=== PATIENT | male | born 1980 | race Hispanic/Latino ===

== ENCOUNTER 2023-07-18 04:20 | Inpatient (IN) | payer OTHER ==
[2023-07-18] VITALS (59 sets, daily range): BP systolic 86–146; BP diastolic 40–99; PULSE 81–99; RESP 12–30; O2SAT 94–96
[~2023-07-18] VITALS: Ht 188 cm; Wt 120.2 kg
[2023-07-18 04:36] LABS: BASOPHILS # (AUTO) 0.04 K/uL (0.00-0.20); BASOPHILS % (AUTO) 0.3 % (0.0-5.0); EOSINOPHILS # (AUTO) 0.01 K/uL (0.00-0.70); EOSINOPHILS % (AUTO) 0.1 % (0.0-8.0); HEMATOCRIT 47.3 % (42-54); IMMATURE GRANULOCYTE ABSOLUTE 0.06 K/uL (0-1); LYMPHOCYTES # (AUTO) 2.4 K/uL (1.0-4.8); LYMPHOCYTES % (AUTO) 18.7 % (21.0-51.0); MEAN CORPUSCULAR HEMOGLOBIN 29.1 pg (27.0-33.0); MEAN CORPUSCULAR HGB CONC 32.8 g/dL (32.0-36.0); MEAN CORPUSCULAR VOLUME 88.7 fL (79-99); MONOCYTES # (AUTO) 0.9 K/uL (0.1-1.0); MONOCYTES % (AUTO) 7.4 % (3.0-13.0); NEUTROPHILS # (AUTO) 9.2 K/uL (1.8-7.7); PLATELET COUNT (AUTO) 277 K/uL (130-400); RED BLOOD CELL COUNT(AUTO) 5.33 MIL/uL (4.50-6.20); RED CELL DISTRIBUTION WIDTH 13.2 % (11.0-15.5); WHITE BLOOD COUNT (AUTO) 12.6 K/uL (4.8-10.8)
[2023-07-18 04:54] LABS: CREATININE 1.5 mg/dL (0.5-1.5); POTASSIUM 4.4 mmol/L (3.5-5.1)
[2023-07-18 04:59] LABS: ALBUMIN 4.1 g/dL (3.5-5.0); BILIRUBIN,TOTAL 0.5 mg/dL (0.2-1.0); TOTAL PROTEIN, SERUM 7.6 g/dL (6.0-8.3)
[2023-07-18] MEDS ORDERED: CLOPIDOGREL 300MG TAB PO ONE (05:00)
[2023-07-18] MEDS ORDERED: ASPIRIN 325MG TAB PO ONE (05:00)
[2023-07-18] MEDS ORDERED: NITROGLYCERIN 1GM OINT 1 INCH/1GM TD ONE (05:00)
[2023-07-18] MEDS ORDERED: ENOXAPARIN SODIUM 80 MG/0.8 ML SQ ONE (05:00)
[2023-07-18] MEDS ORDERED: NITROGLYCERIN 50MG/D5W 250ML 1 BOT ONE (05:04)
[2023-07-18 05:06] LABS: INR 0.95 (0.85-1.15); PROTHROMBIN TIME 11.1 SEC (9.6-11.6)
[2023-07-18 05:08] LABS: PARTIAL THROMBOPLASTIN TIME 27.6 SEC (26.3-35.5)
[2023-07-18 05:20] LABS: MAGNESIUM 1.7 mg/dL (1.80-2.40); THYROID STIMULATING HORMONE 10.6 uIU/mL (0.36-3.74)
[2023-07-18] MEDS: 0.9%NACL 1000ML 1,000 ML IV SCH ×2 (05:29→21:30)
[2023-07-18] MEDS ORDERED: INSULIN HUMULIN R 100 UNIT/ML 3ML IV ONE (05:30)
[2023-07-18] MEDS ORDERED: METOPROLOL TARTRATE 1 MG/ML 5ML VIAL IV ONE (05:30)
[2023-07-18] MEDS ORDERED: LORAZEPAM 2 MG/ML 1 ML VIAL IVP ONE (05:30)
[2023-07-18] MEDS: NITROGLYCERIN 50MG/D5W 250ML 250 BOT IV SCH ×3 (05:31→19:57)
[2023-07-18] MEDS ORDERED: GLUCAGON 1MG KIT 1 MG ML IM PRN (08:00)
[2023-07-18] MEDS ORDERED: POTASSIUM CHLORIDE 10% ELIXIR 20 MEQ/15 ML UDCUP PO PRN (08:00)
[2023-07-18] MEDS ORDERED: DIPHENHYDRAMINE HCL 25 MG CAPSULE PO PRN (08:00)
[2023-07-18] MEDS ORDERED: DEXTROSE 50%-WATER 50 ML DISP.SYRIN IV PRN (08:00)
[2023-07-18] MEDS ORDERED: POTASSIUM CHLORIDE 20MEQ/100ML 100 ML IV PRN (08:00)
[2023-07-18] MEDS ORDERED: MAG/ALUM/SIMETH 30 ML UDCUP PO PRN (08:00)
[2023-07-18] MEDS ORDERED: ONDANSETRON 4MG INJ IV PRN (08:00)
[2023-07-18] MEDS ORDERED: LACTULOSE 20 GM/30 ML UDCUP PO PRN (08:00)
[2023-07-18] MEDS ORDERED: NITROGLYCERIN 0.4 MG SL TAB SL PRN (08:00)
[2023-07-18] MEDS ORDERED: ACETAMINOPHEN 325 MG TAB PO PRN ×2 (08:00)
[2023-07-18] MEDS ORDERED: GUAIFENESIN-DM 200/20 MG 10 ML PO PRN (08:00)
[2023-07-18] MEDS ORDERED: DiphenhydrAMINE HCL 50 MG/ML VIAL IV PRN (08:00)
[2023-07-18] MEDS ORDERED: HEPARIN 5,000 UNIT VIAL SQ PRN (08:30)
[2023-07-18] MEDS: ASPIRIN 81 MG EC TAB PO SCH (09:00)
[2023-07-18] MEDS: FAMOTIDINE 20MG VIAL IV SCH ×2 (09:00→21:00)
[2023-07-18] MEDS: CLOPIDOGREL 75MG TAB PO SCH (09:00)
[2023-07-18] MEDS: HEPARIN 25,000 UNITS/250ML D5W 250 ML IV SCH ×3 (09:11→20:30)
[2023-07-18 09:22] LABS: HEMOGLOBIN A1C 7.6 % (4.0-6.0)
[2023-07-18] MEDS: FAMOTIDINE 20MG TAB PO SCH ×2 (09:24→20:28)
[2023-07-18] MEDS ORDERED: AZIL80TA PO (09:53)
[2023-07-18] MEDS ORDERED: GLIP5TAB11 PO (09:53)
[2023-07-18] MEDS ORDERED: LEVO150C4 PO (09:53)
[2023-07-18] MEDS ORDERED: LISI20TA24 PO (09:53)
[2023-07-18] MEDS ORDERED: GABA300S3 PO (09:53)
[2023-07-18] MEDS ORDERED: DICL1TAB5 PO (09:53)
[2023-07-18] MEDS ORDERED: SITA1TAB6 PO (09:53)
[2023-07-18] MEDS ORDERED: INSU100V12 SQ (09:53)
[2023-07-18] MEDS ORDERED: DEXL30CA3 PO (09:53)
[2023-07-18] MEDS ORDERED: SERT-439 PO (09:53)
[2023-07-18] MEDS ORDERED: ARIP10TA54 PO (09:53)
[2023-07-18] MEDS: MAGNESIUM 2GM PREMIX 50ML 50 ML IV PRN (11:20)
[2023-07-18] MEDS: INSULIN HUMULIN R 100 UNIT/ML 3ML SQ SCH ×3 (11:36→20:28)
[2023-07-18] MEDS: HYDROCODONE/ACETAMINOPHEN 5/325 MG TAB PO PRN ×2 (12:11→20:35)
[2023-07-18] MEDS: HYDROMORPHONE 1 MG INJ IV PRN (14:37)
[2023-07-18 15:36] LABS: INR 0.99 (0.85-1.15); PROTHROMBIN TIME 11.5 SEC (9.6-11.6)
[2023-07-18 16:30] LABS: PARTIAL THROMBOPLASTIN TIME > 139.0 SEC (26.3-35.5)
[2023-07-18 18:56] LABS: AMPHET/METH SCREEN,URINE NEGATIVE (NEGATIVE); BARBITURATE SCREEN, URINE NEGATIVE (NEGATIVE); BENZODIAZEPINES SCREEN,URINE NEGATIVE (NEGATIVE); CANNABINOID SCREEN,URINE NEGATIVE (NEGATIVE); COCAINE SCREEN,URINE POSITIVE (NEGATIVE); OPIATE SCREEN,URINE NEGATIVE (NEGATIVE); PHENCYCLIDINE SCREEN,URINE NEGATIVE (NEGATIVE)
[2023-07-18] MEDS: ATORVASTATIN 40 MG TABLET PO SCH (20:27)
[2023-07-18 22:48] LABS: INR 0.94 (0.85-1.15)
[2023-07-18 22:50] LABS: PARTIAL THROMBOPLASTIN TIME 66.7 SEC (26.3-35.5)
[2023-07-19] VITALS (79 sets, daily range): BP systolic 100–149; BP diastolic 50–106; PULSE 85–106; RESP 10–45; O2SAT 94–100
[2023-07-19] MEDS: HYDROCODONE/ACETAMINOPHEN 5/325 MG TAB PO PRN ×3 (01:10→14:27)
[2023-07-19] MEDS: HEPARIN 25,000 UNITS/250ML D5W 250 ML IV SCH ×2 (02:21→20:20)
[2023-07-19 04:17] LABS: BASOPHILS # (AUTO) 0.04 K/uL (0.00-0.20); BASOPHILS % (AUTO) 0.4 % (0.0-5.0); EOSINOPHILS # (AUTO) 0.04 K/uL (0.00-0.70); EOSINOPHILS % (AUTO) 0.4 % (0.0-8.0); HEMATOCRIT 36.6 % (42-54); IMMATURE GRANULOCYTE ABSOLUTE 0.05 K/uL (0-1); LYMPHOCYTES # (AUTO) 2.5 K/uL (1.0-4.8); LYMPHOCYTES % (AUTO) 24.5 % (21.0-51.0); MEAN CORPUSCULAR HEMOGLOBIN 29.5 pg (27.0-33.0); MEAN CORPUSCULAR HGB CONC 32.8 g/dL (32.0-36.0); MEAN CORPUSCULAR VOLUME 89.9 fL (79-99); MONOCYTES % (AUTO) 10.2 % (3.0-13.0); NEUTROPHILS # (AUTO) 6.4 K/uL (1.8-7.7); PLATELET COUNT (AUTO) 189 K/uL (130-400); RED BLOOD CELL COUNT(AUTO) 4.07 MIL/uL (4.50-6.20); RED CELL DISTRIBUTION WIDTH 13.3 % (11.0-15.5); WHITE BLOOD COUNT (AUTO) 10.1 K/uL (4.8-10.8)
[2023-07-19 04:26] LABS: INR 0.94 (0.85-1.15)
[2023-07-19 04:27] LABS: CREATININE 1.1 mg/dL (0.5-1.5); MAGNESIUM 1.8 mg/dL (1.80-2.40); PARTIAL THROMBOPLASTIN TIME 64.1 SEC (26.3-35.5); PHOSPHORUS 3.7 mg/dL (2.5-4.9); POTASSIUM 4.2 mmol/L (3.5-5.1)
[2023-07-19 04:48] LABS: % IRON SATURATION 7.8 % (30-44)
[2023-07-19] MEDS: MAGNESIUM 2GM PREMIX 50ML 50 ML IV PRN (06:23)
[2023-07-19] MEDS: INSULIN HUMULIN R 100 UNIT/ML 3ML SQ SCH ×4 (06:32→20:28)
[2023-07-19] MEDS: ASPIRIN 81 MG EC TAB PO SCH (08:28)
[2023-07-19] MEDS: FAMOTIDINE 20MG TAB PO SCH ×2 (08:28→20:26)
[2023-07-19] MEDS: CLOPIDOGREL 75MG TAB PO SCH (08:28)
[2023-07-19] MEDS: FAMOTIDINE 20MG VIAL IV SCH (08:29)
[2023-07-19 08:36] LABS: CHOLESTEROL 187 mg/dL (<200); HDL CHOLESTEROL 48 mg/dL (29-71); LDL DIRECT 112 mg/dL (0-99); TRIGLYCERIDES 125 mg/dL (30-200)
[2023-07-19] MEDS: ARIPIPRAZOLE 5 MG TABLET PO SCH (09:00)
[2023-07-19] MEDS ORDERED: ARIPIPRAZOLE 10 MG PO SCH (09:00)
[2023-07-19] MEDS ORDERED: NON-FORMULARY MEDICATION 1 EACH (Gabapentin 300 MG) PO SCH (09:00)
[2023-07-19] MEDS: GABAPENTIN 300 MG CAPSULE PO SCH (09:56)
[2023-07-19] MEDS: SERTRALINE HCL 50 MG TABLET PO SCH (09:56)
[2023-07-19] MEDS ORDERED: FUROSEMIDE 20MG VIAL IV ONE (10:30)
[2023-07-19] MEDS ORDERED: METOPROLOL TARTRATE 1 MG/ML 5ML VIAL IV ONE ×2 (11:00)
[2023-07-19] MEDS ORDERED: LIDOCAINE HCL 400MG/20ML VIAL ONE ×2 (11:34→13:49)
[2023-07-19] MEDS ORDERED: MIDAZOLAM HCL 1 MG/ML 2ML VIAL ONE (11:35)
[2023-07-19] MEDS ORDERED: HEPARIN 10,000 UNIT/10ML (1,000 UNIT/ML) VIAL ONE (11:35)
[2023-07-19] MEDS ORDERED: IOHEXOL 350 MG/ML 100ML INFUS..BTL IV ONE ×2 (11:35→13:51)
[2023-07-19] MEDS ORDERED: ATROPINE 1MG SYG IVP ONE (12:06)
[2023-07-19] MEDS ORDERED: DOPAMINE HCL 400 MG/D5%-WATER 0 ML IV ONE (12:06)
[2023-07-19] MEDS ORDERED: ONDANSETRON 4MG INJ ONE (12:07)
[2023-07-19] MEDS ORDERED: ADENOSINE 6MG VIAL IV ONE (12:25)
[2023-07-19] MEDS ORDERED: EPTIFIBATIDE 75MG/100ML BOTTLE 100 ML IV ONE (12:28)
[2023-07-19] MEDS ORDERED: EPTIFIBATIDE 2 MG/ML 10 ML VIAL IVP ONE ×3 (12:28→12:43)
[2023-07-19] MEDS ORDERED: MORPHINE 4 MG SYG ONE (12:42)
[2023-07-19] MEDS ORDERED: HEPARIN 25,000 UNITS/250ML D5W 250 ML IV ONE (13:05)
[2023-07-19] MEDS ORDERED: ASPIRIN 81MG CHEW TAB ONE (13:13)
[2023-07-19] MEDS ORDERED: CLOPIDOGREL 300MG TAB ONE (13:13)
[2023-07-19] MEDS ORDERED: ONDANSETRON 4MG INJ IVP SCH (13:30)
[2023-07-19] MEDS ORDERED: TEMAZEPAM 30 MG CAP PO PRN (13:30)
[2023-07-19] MEDS ORDERED: ACETAMINOPHEN WITH CODEINE 1 TAB TAB PO PRN ×2 (13:30)
[2023-07-19] MEDS ORDERED: ONDANSETRON 4MG INJ IVP PRN (13:30)
[2023-07-19] MEDS ORDERED: MORPHINE 5 MG/ML VIAL (5MG OR GREATER DOSE) IVP SCH ×2 (13:30)
[2023-07-19] MEDS ORDERED: FUROSEMIDE 20MG VIAL ONE (13:57)
[2023-07-19 15:17] LABS: INR 0.98 (0.85-1.15); PROTHROMBIN TIME 11.4 SEC (9.6-11.6)
[2023-07-19 15:18] LABS: PARTIAL THROMBOPLASTIN TIME 61.7 SEC (26.3-35.5)
[2023-07-19] MEDS: HYDROMORPHONE 1 MG INJ IV PRN ×2 (15:47→20:27)
[2023-07-19] MEDS: EPTIFIBATIDE 75MG/100ML BOTTLE 100 ML IV SCH ×2 (16:31→21:26)
[2023-07-19] MEDS: NITROGLYCERIN 50MG/D5W 250ML 250 BOT IV SCH (18:18)
[2023-07-19] MEDS: METOPROLOL TARTRATE 25 MG TAB PO SCH (20:26)
[2023-07-19] MEDS: ATORVASTATIN 40 MG TABLET PO SCH (20:26)
[2023-07-19] MEDS ORDERED: FUROSEMIDE 20MG VIAL IV SCH (21:00)
[2023-07-19 22:01] LABS: INR 0.98 (0.85-1.15); PROTHROMBIN TIME 11.4 SEC (9.6-11.6)
[2023-07-19 22:02] LABS: PARTIAL THROMBOPLASTIN TIME 68.6 SEC (26.3-35.5)
[2023-07-20] VITALS (53 sets, daily range): BP systolic 75–153; BP diastolic 52–88; PULSE 77–148; RESP 8–44; O2SAT 91–96
[2023-07-20] MEDS: HYDROCODONE/ACETAMINOPHEN 5/325 MG TAB PO PRN (00:17)
[2023-07-20] MEDS: HEPARIN 25,000 UNITS/250ML D5W 250 ML IV SCH (01:08)
[2023-07-20] MEDS: HYDROMORPHONE 1 MG INJ IV PRN (01:15)
[2023-07-20 03:25] LABS: BASOPHILS # (AUTO) 0.03 K/uL (0.00-0.20); BASOPHILS % (AUTO) 0.3 % (0.0-5.0); EOSINOPHILS # (AUTO) 0.01 K/uL (0.00-0.70); EOSINOPHILS % (AUTO) 0.1 % (0.0-8.0); HEMATOCRIT 34.8 % (42-54); IMMATURE GRANULOCYTE ABSOLUTE 0.07 K/uL (0-1); LYMPHOCYTES # (AUTO) 1.5 K/uL (1.0-4.8); LYMPHOCYTES % (AUTO) 13.3 % (21.0-51.0); MEAN CORPUSCULAR HEMOGLOBIN 29.2 pg (27.0-33.0); MEAN CORPUSCULAR HGB CONC 32.5 g/dL (32.0-36.0); MEAN CORPUSCULAR VOLUME 89.9 fL (79-99); NEUTROPHILS # (AUTO) 8.9 K/uL (1.8-7.7); NEUTROPHILS % (AUTO) 76.7 % (40.0-77.0); PLATELET COUNT (AUTO) 189 K/uL (130-400); RED BLOOD CELL COUNT(AUTO) 3.87 MIL/uL (4.50-6.20); RED CELL DISTRIBUTION WIDTH 13.1 % (11.0-15.5); WHITE BLOOD COUNT (AUTO) 11.6 K/uL (4.8-10.8)
[2023-07-20] MEDS: EPTIFIBATIDE 75MG/100ML BOTTLE 100 ML IV SCH (03:39)
[2023-07-20 03:44] LABS: MAGNESIUM 1.9 mg/dL (1.80-2.40); TOTAL PROTEIN, SERUM 6.6 g/dL (6.0-8.3)
[2023-07-20 03:53] LABS: INR 1.01 (0.85-1.15); PROTHROMBIN TIME 11.7 SEC (9.6-11.6)
[2023-07-20 03:55] LABS: PARTIAL THROMBOPLASTIN TIME 78.3 SEC (26.3-35.5)
[2023-07-20] MEDS ORDERED: AMIODARONE 150MG VIAL ONE (04:48)
[2023-07-20] MEDS ORDERED: AMIODARONE 900MG VIAL IV ONE (04:48)
[2023-07-20] MEDS ORDERED: AMIODARONE 900MG VIAL 150 MG in DEXTROSE 5%-WATER 100 ML IV SCH (05:00)
[2023-07-20] MEDS ORDERED: AMIODARONE 900MG VIAL 360 MG in DEXTROSE 5%-WATER 200 ML IV SCH (05:00)
[2023-07-20] MEDS: LEVOTHYROXINE 150 MCG TABLET PO SCH (05:56)
[2023-07-20] MEDS ORDERED: MORPHINE 2 MG SYG IVP ONE (07:00)
[2023-07-20] MEDS: INSULIN HUMULIN R 100 UNIT/ML 3ML SQ SCH ×4 (07:30→21:00)
[2023-07-20] MEDS ORDERED: NON-FORMULARY MEDICATION 1 EACH (Levothyroxine Sodium (Levothyroxine) 150 MCG) PO SCH (07:30)
[2023-07-20] MEDS: ASPIRIN 81 MG EC TAB PO SCH (09:00)
[2023-07-20] MEDS ORDERED: CLOPIDOGREL 75MG TAB PO SCH (09:00)
[2023-07-20] MEDS: GABAPENTIN 300 MG CAPSULE PO SCH (09:12)
[2023-07-20] MEDS: METOPROLOL TARTRATE 25 MG TAB PO SCH ×2 (09:12→20:43)
[2023-07-20] MEDS: LISINOPRIL 10 MG TABLET PO SCH (09:12)
[2023-07-20] MEDS: ASPIRIN 81MG CHEW TAB PO SCH (09:13)
[2023-07-20] MEDS: AMIODARONE 200 MG TABLET PO SCH ×2 (09:13→20:43)
[2023-07-20] MEDS: CLOPIDOGREL 75MG TAB PO SCH (09:13)
[2023-07-20] MEDS: PANTOPRAZOLE 40 MG TAB DR PO SCH (09:13)
[2023-07-20] MEDS: ARIPIPRAZOLE 5 MG TABLET PO SCH (09:13)
[2023-07-20] MEDS: SERTRALINE HCL 50 MG TABLET PO SCH (09:13)
[2023-07-20 09:34] LABS: INR 1.03 (0.85-1.15); PROTHROMBIN TIME 11.9 SEC (9.6-11.6)
[2023-07-20 09:36] LABS: PARTIAL THROMBOPLASTIN TIME 32.7 SEC (26.3-35.5)
[2023-07-20] MEDS ORDERED: AMIODARONE 900MG VIAL 540 MG in DEXTROSE 5%-WATER 300 ML IV SCH (11:15)
[2023-07-20] MEDS: MAGNESIUM 2GM PREMIX 50ML 50 ML IV PRN (11:21)
[2023-07-20] MEDS: BISACODYL 5 MG TABLET.DR PO SCH ×2 (20:30→20:43)
[2023-07-20] MEDS: POLYETHYLENE GLYCOL 3350 17 GM POWD.PACK PO ONE ×2 (20:43→21:00)
[2023-07-20] MEDS: ATORVASTATIN 40 MG TABLET PO SCH (20:43)
[2023-07-21 04:22] VITALS: BP 133/66; PULSE 51; RESP 18
[2023-07-21 04:27] LABS: BASOPHILS # (AUTO) 0.02 K/uL (0.00-0.20); BASOPHILS % (AUTO) 0.2 % (0.0-5.0); EOSINOPHILS # (AUTO) 0.01 K/uL (0.00-0.70); EOSINOPHILS % (AUTO) 0.1 % (0.0-8.0); HEMATOCRIT 35.1 % (42-54); IMMATURE GRANULOCYTE ABSOLUTE 0.07 K/uL (0-1); LYMPHOCYTES # (AUTO) 1.3 K/uL (1.0-4.8); LYMPHOCYTES % (AUTO) 13.1 % (21.0-51.0); MEAN CORPUSCULAR HEMOGLOBIN 29.2 pg (27.0-33.0); MEAN CORPUSCULAR HGB CONC 32.5 g/dL (32.0-36.0); MONOCYTES # (AUTO) 0.9 K/uL (0.1-1.0); MONOCYTES % (AUTO) 9.4 % (3.0-13.0); NEUTROPHILS # (AUTO) 7.4 K/uL (1.8-7.7); NEUTROPHILS % (AUTO) 76.5 % (40.0-77.0); PLATELET COUNT (AUTO) 194 K/uL (130-400); WHITE BLOOD COUNT (AUTO) 9.7 K/uL (4.8-10.8)
[2023-07-21 04:52] LABS: ALBUMIN 2.8 g/dL (3.5-5.0); BILIRUBIN,TOTAL 0.5 mg/dL (0.2-1.0); POTASSIUM 3.4 mmol/L (3.5-5.1); TOTAL PROTEIN, SERUM 6.7 g/dL (6.0-8.3)
[2023-07-21] MEDS: KCL 20 MEQ ERTAB PO PRN ×2 (05:08→11:01)
[2023-07-21] MEDS: LEVOTHYROXINE 150 MCG TABLET PO SCH (05:08)
[2023-07-21] MEDS: INSULIN HUMULIN R 100 UNIT/ML 3ML SQ SCH ×3 (05:57→16:30)
[2023-07-21 07:18] VITALS: BP 130/68; PULSE 53; RESP 18
[2023-07-21 07:32] VITALS: O2SAT 95
[2023-07-21] MEDS: ASPIRIN 81 MG EC TAB PO SCH (09:00)
[2023-07-21] MEDS ORDERED: ENOXAPARIN SODIUM 40 MG/0.4 ML SYRINGE SQ SCH (09:00)
[2023-07-21] MEDS ORDERED: BISACODYL 5 MG TABLET.DR PO SCH (09:00)
[2023-07-21] MEDS: ASPIRIN 81MG CHEW TAB PO SCH (09:22)
[2023-07-21] MEDS: GABAPENTIN 300 MG CAPSULE PO SCH (09:23)
[2023-07-21] MEDS: ARIPIPRAZOLE 5 MG TABLET PO SCH (09:23)
[2023-07-21] MEDS: CLOPIDOGREL 75MG TAB PO SCH (09:23)
[2023-07-21] MEDS: PANTOPRAZOLE 40 MG TAB DR PO SCH (09:23)
[2023-07-21] MEDS: METOPROLOL TARTRATE 25 MG TAB PO SCH (09:23)
[2023-07-21] MEDS: SERTRALINE HCL 50 MG TABLET PO SCH (09:24)
[2023-07-21] MEDS: AMIODARONE 200 MG TABLET PO SCH (09:24)
[2023-07-21] MEDS: LISINOPRIL 10 MG TABLET PO SCH (09:24)
[2023-07-21 11:10] VITALS: BP 128/77; PULSE 92; RESP 18
[2023-07-21] MEDS ORDERED: AMIO200T68 PO ×2 (15:01→15:08)
[2023-07-21] MEDS ORDERED: METO25TA3 PO (15:07)
[2023-07-21] MEDS ORDERED: Nitroglycerin 0.4MG Sl Tab SL (15:07)
[2023-07-21] MEDS ORDERED: ATOR40TA69 PO (15:07)
[2023-07-21] MEDS ORDERED: CLOP-31 PO (15:07)
[2023-07-21] MEDS ORDERED: LISI10TA24 PO (15:07)
[2023-07-21] MEDS ORDERED: APIX5TAB PO (15:10)
[2023-07-21 16:17] VITALS: BP 121/56; PULSE 51; RESP 18
== END 2023-07-21 17:26 | disposition home or self-care (01) | DRG 246 ==
LOC: EDH 04:20 → EDHIP 04:21 → 2CV 09:09 → 2CH 17:51 → 2DH 07-20 14:26
PROVIDERS: ADMIT Internal Medicine; ATTEND Internal Medicine
PROC: 4A023N7 Measurement of Cardiac Sampling and Pressure, Left Heart, Percutaneous Approach (ICD-10-PCS; principal; 2023-07-19)
PROC: 027036Z Dilation of Coronary Artery, One Artery with Three Drug-eluting Intraluminal Devices, Percutaneous Approach (ICD-10-PCS; 2023-07-19)
PROC: 02C03ZZ Extirpation of Matter from Coronary Artery, One Artery, Percutaneous Approach (ICD-10-PCS; 2023-07-19)
PROC: 3E073PZ Introduction of Platelet Inhibitor into Coronary Artery, Percutaneous Approach (ICD-10-PCS; 2023-07-19)
PROC: B2111ZZ Fluoroscopy of Multiple Coronary Arteries using Low Osmolar Contrast (ICD-10-PCS; 2023-07-19)
DX: I21.19 ST elevation (STEMI) myocardial infarction involving other coronary artery of inferior wall (principal); I50.23 Acute on chronic systolic (congestive) heart failure; I11.0 Hypertensive heart disease with heart failure; E05.90 Thyrotoxicosis, unspecified without thyrotoxic crisis or storm; E11.65 Type 2 diabetes mellitus with hyperglycemia; F14.10 Cocaine abuse, uncomplicated; I25.10 Atherosclerotic heart disease of native coronary artery without angina pectoris; I48.91 Unspecified atrial fibrillation; E03.9 Hypothyroidism, unspecified; E78.00 Pure hypercholesterolemia, unspecified; F17.210 Nicotine dependence, cigarettes, uncomplicated; F32.A Depression, unspecified; I25.2 Old myocardial infarction; Z95.5 Presence of coronary angioplasty implant and graft; Z91.199 Patient's noncompliance with other medical treatment and regimen due to unspecified reason
CPT/HCPCS: 36415; 71045; 80048; 80053; 80061; 80305; 82306; 82948; 83036; 83540; 83550; 83690; 83735; 83880; 84100; 84439; 84443; 84484; 85025; 85347; 85610; 85730; 86701; 87390; 92973; 93005; 93306; 93454; 93458; 99156; 99157; C1769; C1887; C1894; C9606; G0378; J0153; J0282; J0461; J1170; J1265; J1327; J1644; J1650; J1815; J1940; J2060; J2250; J2270; J2405; J3475; J3490; J7060; Q9967; C1725; C1874; Q9965

== ENCOUNTER 2023-10-15 13:05 | Inpatient (IN) | payer OTHER ==
[2023-10-15] VITALS: BP 159/79; PULSE 99; RESP 22
[~2023-10-15] VITALS: Ht 188 cm; Wt 132.4 kg
[~2023-10-15 13:05] MED LIST: AMIO200T68 PO; ARIP10TA54 PO; ATOR40TA69 PO; CLOP-31 PO; DEXL30CA3 PO; DICL1TAB5 PO; GLIP5TAB15 PO; INSU100V12 SQ; LEVO150C4 PO; LISI10TA24 PO; METO25TA3 PO; Nitroglycerin 0.4MG Sl Tab SL; SERT-439 PO; SITA1TAB6 PO
[2023-10-15 14:17] LABS: HEMATOCRIT 48.8 % (42-54); MEAN CORPUSCULAR HEMOGLOBIN 29.4 pg (27.0-33.0); MEAN CORPUSCULAR HGB CONC 32.4 g/dL (32.0-36.0); MEAN CORPUSCULAR VOLUME 90.7 fL (79-99); PLATELET COUNT (AUTO) 156 K/uL (130-400); RED BLOOD CELL COUNT(AUTO) 5.38 MIL/uL (4.50-6.20); RED CELL DISTRIBUTION WIDTH 13.3 % (11.0-15.5); WHITE BLOOD COUNT (AUTO) 7.1 K/uL (4.8-10.8)
[2023-10-15 15:00] LABS: BASOPHILS # (AUTO) 0.05 K/uL (0.00-0.20); BASOPHILS % (AUTO) 0.7 % (0.0-5.0); EOSINOPHILS % (AUTO) 2.9 % (0.0-8.0); IMMATURE GRANULOCYTE ABSOLUTE 0.05 K/uL (0-1); LYMPHOCYTES # (AUTO) 2.7 K/uL (1.0-4.8); LYMPHOCYTES % (AUTO) 39.3 % (21.0-51.0); MONOCYTES # (AUTO) 0.5 K/uL (0.1-1.0); MONOCYTES % (AUTO) 7.3 % (3.0-13.0); NEUTROPHILS # (AUTO) 3.4 K/uL (1.8-7.7); NEUTROPHILS % (AUTO) 49.1 % (40.0-77.0)
[2023-10-15 15:20] LABS: B-TYPE NATRIURETIC PEPTIDE 375 pg/mL (0-100)
[2023-10-15 15:30] LABS: POTASSIUM 4.6 mmol/L (3.5-5.1)
[2023-10-15 15:35] LABS: BILIRUBIN,TOTAL 0.2 mg/dL (0.2-1.0); TOTAL PROTEIN, SERUM 6.7 g/dL (6.0-8.3)
[2023-10-15] MEDS ORDERED: APIX5TAB PO (16:39)
[2023-10-15] MEDS ORDERED: ATOR40TA69 PO (16:39)
[2023-10-15] MEDS ORDERED: IPRATROPIUM/ALBUTEROL SULFATE 3 ML SOLUTION IH ONE (16:50)
[2023-10-15 16:53] VITALS: PULSE 88; RESP 20
[2023-10-15] MEDS ORDERED: ONDANSETRON 4MG INJ IV PRN (17:00)
[2023-10-15] MEDS ORDERED: DEXTROSE 50%-WATER 50 ML DISP.SYRIN IV PRN (17:00)
[2023-10-15] MEDS ORDERED: IPRATROPIUM/ALBUTEROL SULFATE 3 ML SOLUTION IH PRN (17:00)
[2023-10-15] MEDS ORDERED: HYDRALAZINE 20MG/ML VIAL IV PRN (17:00)
[2023-10-15] MEDS ORDERED: GLUCAGON 1MG KIT 1 MG ML IM PRN (17:00)
[2023-10-15] MEDS ORDERED: MAG/ALUM/SIMETH 30 ML UDCUP PO PRN (17:00)
[2023-10-15] MEDS ORDERED: LACTULOSE 20 GM/30 ML UDCUP PO PRN (17:00)
[2023-10-15] MEDS ORDERED: ACETAMINOPHEN 325 MG TAB PO PRN (17:00)
[2023-10-15] MEDS ORDERED: CEFTRIAXONE 1G VIAL 1 GM in 0.9%NACL 50ML 50 ML IV SCH (17:00)
[2023-10-15] MEDS ORDERED: DIPHENHYDRAMINE HCL 25 MG CAPSULE PO PRN (17:00)
[2023-10-15] MEDS ORDERED: NITROGLYCERIN 0.4 MG SL TAB SL PRN (17:00)
[2023-10-15 17:13] VITALS: PULSE 87; RESP 18; O2SAT 96
[2023-10-15 17:37] LABS: HEMOGLOBIN A1C 7.5 % (4.0-6.0)
[2023-10-15] MEDS: CEFTRIAXONE 1G VIAL IVPB SCH (17:40)
[2023-10-15] MEDS: AZITHROMYCIN 500MG+NS 250ML 250 ML IV SCH (17:41)
[2023-10-15] MEDS ORDERED: SODIUM CHLORIDE 3% FOR INHALATION 4 ML/AMP VIAL.NEB IH ONE (18:03)
[2023-10-15 18:37] VITALS: PULSE 90; RESP 14; O2SAT 100
[2023-10-15 20:00] VITALS: BP 124/79; PULSE 96; RESP 16
[2023-10-15] MEDS ORDERED: ATORVASTATIN 40 MG TABLET PO SCH (21:00)
[2023-10-15] MEDS: BENZONATATE 100 MG CAPSULE PO SCH (22:03)
[2023-10-15] MEDS: ATORVASTATIN 40 MG TABLET PO SCH (22:03)
[2023-10-15] MEDS: APIXABAN 5 MG TABLET PO SCH (22:03)
[2023-10-15] MEDS: FAMOTIDINE 20MG VIAL IV SCH (22:03)
[2023-10-15] MEDS: INSULIN HUMULIN R 100 UNIT/ML 3ML SQ SCH (22:14)
[2023-10-15 22:40] VITALS: BP 159/79; PULSE 99; RESP 22
[2023-10-15] MEDS: Janumet 50-1,000 mg PO SCH (23:00)
[2023-10-16] VITALS (10 sets, daily range): BP systolic 127–167; BP diastolic 84–98; PULSE 84–105; RESP 16–22; O2SAT 96–98
[2023-10-16] MEDS: INSULIN HUMULIN R 100 UNIT/ML 3ML SQ SCH ×5 (05:37→20:21)
[2023-10-16] MEDS: LEVOTHYROXINE 150 MCG TABLET PO SCH (05:44)
[2023-10-16] MEDS ORDERED: NON-FORMULARY MEDICATION 1 EACH (Levothyroxine Sodium (Levothyroxine) 150 MCG) PO SCH (07:30)
[2023-10-16] MEDS: CLOPIDOGREL 75MG TAB PO SCH (08:17)
[2023-10-16] MEDS: FAMOTIDINE 20MG VIAL IV SCH ×2 (08:17→20:07)
[2023-10-16] MEDS: APIXABAN 5 MG TABLET PO SCH ×2 (08:17→20:07)
[2023-10-16] MEDS: BENZONATATE 100 MG CAPSULE PO SCH ×3 (08:17→20:20)
[2023-10-16] MEDS: GLIPIZIDE 5 MG TABLET PO SCH (08:17)
[2023-10-16] MEDS: METOPROLOL SUCCINATE 25 MG TAB.SR.24H PO SCH (08:17)
[2023-10-16] MEDS: LISINOPRIL 10 MG TABLET PO SCH (08:17)
[2023-10-16] MEDS: AMIODARONE 200 MG TABLET PO SCH (08:17)
[2023-10-16] MEDS: ACETAMINOPHEN WITH CODEINE 1 TAB TAB PO PRN ×2 (08:23→20:21)
[2023-10-16] MEDS: Janumet 50-1,000 mg PO SCH ×2 (08:28→20:09)
[2023-10-16] MEDS ORDERED: FUROSEMIDE 20MG VIAL IV SCH ×2 (09:00→14:00)
[2023-10-16 11:10] LABS: CREATININE 0.9 mg/dL (0.5-1.5); POTASSIUM 4.1 mmol/L (3.5-5.1)
[2023-10-16] MEDS: AZITHROMYCIN 500MG+NS 250ML 250 ML IV SCH (16:05)
[2023-10-16] MEDS: CEFTRIAXONE 1G VIAL IVPB SCH (16:05)
[2023-10-16] MEDS: ATORVASTATIN 40 MG TABLET PO SCH (20:07)
[2023-10-17 03:51] LABS: BASOPHILS # (AUTO) 0.03 K/uL (0.00-0.20); BASOPHILS % (AUTO) 0.5 % (0.0-5.0); EOSINOPHILS # (AUTO) 0.17 K/uL (0.00-0.70); EOSINOPHILS % (AUTO) 2.8 % (0.0-8.0); HEMATOCRIT 45.3 % (42-54); IMMATURE GRANULOCYTE ABSOLUTE 0.05 K/uL (0-1); LYMPHOCYTES # (AUTO) 2.1 K/uL (1.0-4.8); LYMPHOCYTES % (AUTO) 34.6 % (21.0-51.0); MEAN CORPUSCULAR HEMOGLOBIN 29.2 pg (27.0-33.0); MEAN CORPUSCULAR HGB CONC 32.5 g/dL (32.0-36.0); MEAN CORPUSCULAR VOLUME 89.9 fL (79-99); MONOCYTES # (AUTO) 0.5 K/uL (0.1-1.0); MONOCYTES % (AUTO) 8.9 % (3.0-13.0); NEUTROPHILS # (AUTO) 3.1 K/uL (1.8-7.7); NEUTROPHILS % (AUTO) 52.4 % (40.0-77.0); PLATELET COUNT (AUTO) 221 K/uL (130-400); RED BLOOD CELL COUNT(AUTO) 5.04 MIL/uL (4.50-6.20); RED CELL DISTRIBUTION WIDTH 13.5 % (11.0-15.5)
[2023-10-17 04:00] VITALS: BP 126/85; PULSE 87; RESP 21
[2023-10-17 04:08] LABS: CREATININE 1.2 mg/dL (0.5-1.5)
[2023-10-17] MEDS: LEVOTHYROXINE 150 MCG TABLET PO SCH (05:21)
[2023-10-17 06:49] VITALS: PULSE 87; RESP 18; O2SAT 98
[2023-10-17] MEDS: INSULIN HUMULIN R 100 UNIT/ML 3ML SQ SCH ×2 (06:52→11:48)
[2023-10-17 08:00] VITALS: BP 145/93; PULSE 87; RESP 20; O2SAT 97
[2023-10-17] MEDS ORDERED: FUROSEMIDE 20MG VIAL IV SCH (08:00)
[2023-10-17] MEDS: BENZONATATE 100 MG CAPSULE PO SCH (08:41)
[2023-10-17] MEDS: GLIPIZIDE 5 MG TABLET PO SCH (08:41)
[2023-10-17] MEDS: CLOPIDOGREL 75MG TAB PO SCH (08:41)
[2023-10-17] MEDS: FAMOTIDINE 20MG VIAL IV SCH (08:42)
[2023-10-17] MEDS: LISINOPRIL 10 MG TABLET PO SCH (08:42)
[2023-10-17] MEDS: AMIODARONE 200 MG TABLET PO SCH (08:42)
[2023-10-17] MEDS: METOPROLOL SUCCINATE 25 MG TAB.SR.24H PO SCH (08:42)
[2023-10-17] MEDS: APIXABAN 5 MG TABLET PO SCH (08:42)
[2023-10-17] MEDS: Janumet 50-1,000 mg PO SCH (08:55)
[2023-10-17] MEDS ORDERED: AZIT500T4 PO (10:46)
[2023-10-17] MEDS ORDERED: LISI10TA24 PO (10:46)
[2023-10-17] MEDS ORDERED: AMOX1TAB16 PO (10:46)
[2023-10-17] MEDS ORDERED: ATOR40TA69 PO (10:46)
[2023-10-17] MEDS ORDERED: METO-408 PO (10:46)
[2023-10-17] MEDS ORDERED: AMIO200T68 PO (10:46)
[2023-10-17] MEDS ORDERED: APIX5TAB PO (10:46)
[2023-10-17] MEDS ORDERED: CLOP75TA32 PO (10:46)
[2023-10-17 12:00] VITALS: BP 136/90; PULSE 85; RESP 22
[2023-10-18] MEDS ORDERED: FUROSEMIDE 40 MG TABLET PO SCH (09:00)
== END 2023-10-17 13:50 | disposition home or self-care (01) | DRG 193 ==
LOC: EDH 13:05 → EDHIP 13:06 → OBSVTOIN 16:35 → EDHIP 16:35 → INTOOBSV 16:35 → UNDOADMOB 16:35 → EDHIP 21:55 → 4AH 21:55 → UNDODISIN 10-17 13:50
PROVIDERS: ADMIT Internal Medicine; ATTEND Internal Medicine
DX: J15.9 Unspecified bacterial pneumonia (principal); I50.23 Acute on chronic systolic (congestive) heart failure; I48.20 Chronic atrial fibrillation, unspecified; I11.0 Hypertensive heart disease with heart failure; E03.9 Hypothyroidism, unspecified; E11.9 Type 2 diabetes mellitus without complications; E66.09 Other obesity due to excess calories; E78.00 Pure hypercholesterolemia, unspecified; F17.210 Nicotine dependence, cigarettes, uncomplicated; F31.9 Bipolar disorder, unspecified; F43.10 Post-traumatic stress disorder, unspecified; G47.33 Obstructive sleep apnea (adult) (pediatric); I25.10 Atherosclerotic heart disease of native coronary artery without angina pectoris; K21.9 Gastro-esophageal reflux disease without esophagitis; Z95.5 Presence of coronary angioplasty implant and graft; I25.2 Old myocardial infarction; Z91.199 Patient's noncompliance with other medical treatment and regimen due to unspecified reason; Z79.01 Long term (current) use of anticoagulants; Z68.37 Body mass index [BMI] 37.0-37.9, adult
CPT/HCPCS: 36415; 71045; 80048; 80053; 82948; 83036; 83880; 84484; 85025; 87040; 87071; 87205; 93005; 94640; 94664; G0378; J0360; J0456; J0696; J1815; J1940; J3490; Q0163